=== PATIENT | female | born 1970 | race African-American/Black ===

== ENCOUNTER 2020-10-28 20:03 | Emergency (ER) | payer MEDICAID ==
[~2020-10-28] VITALS: Ht 167.6 cm; Wt 54.0 kg
--- NOTE | ~2020-10-28 | EMS ---
[address] [place] [address] EMS Patient Care Report Name: CHRIS GRIMALDO [id number] Admission: 10/28/20 Attend Phys: Discharge: 10/29/20 Date of : 70 Report #: [id number] THIS REPORT FOR: //name// Report Transmitted: 10/30/2020 07:08 EMS Care Summary [facility] [id number] @ 10/28/2020 19:01 Incident Location [address] Patient CHRIS GRIMADLO Female, 50 Years 1970 Patient Address [address] [place] [address] Patient History IV Drug Use/Abuse, Patient Allergies Codeine, Patient Medications Gabapentin, Unknown, Chief Complaint weakness Disposition Transported No Lights/[place] Dispatch Reason Sick Person Transported To [facility] Narrative Rescue [address] [facility] for a patient that went unresponsive and is not responsive again. We were called out for the same patient 20 min prior and she refused to be transported with EMS. The patient is currently found to be alert and orientated times four. She is wheel chair bound due to a previous injury and has constrictions to all four limbs. The nurses stated that she has [facility] [address] [place] [address] EMS Patient Care Report Name: CHRIS GRIMALDO Room: [facility]#: [id number] Admission: 10/28/20 Attend Phys: Discharge: 10/29/20 Date of : 70 Report #: [id number] had several episodes of being unresponsive and had to be woken up with painful stimuli. The first episode was around 1600 today. The patient stated that she does not remember those episodes but saw that her urine is cloudy and wants to be taken to the hospital now. The patient has a colostomy bag and a urinary catheter. The catheter was filled with red tinted cloudy urine with debris. She states that her urine was not that cloudy this morning. The nurses state that she had a UTI two weeks ago and has finished her antibiotics for it. She denied SOA, chest pain, pain and nausea. She was transferred over to the [facility] via draw sheet with safety devices properly attached and secured. She was placed on the monitor. She has a PICC line in the left clavicle. She has clear lung sounds, fever of 100.5, normal skin turgor and capillary refill. She states that she has not ate or drank anything today. She is scared of going to the hospital because "I don't want to there". She is comforted by communicating with EMS. The patient will be transported to [place]. During the transport the patient remained alert and orientated times four. She denied nausea, SOA, pain. She has bed sores on her right hip and pelvic area that is covered. She stated that she was seen by her doctor a couple days ago and he stated that there were healing well. The patient stated "i keep getting UTIs because they dont clean by colostomy bag properly." "They found E Coli in my urine because they dont clean my vaginal area right when they empty my bag". She stated that she also takes methadone three times a day and is now prescribed Flexeril. She is concerned it is too much for her. She was advised to discuss this with her doctor. She remained without complaint during transport. During transport [facility] advised that they were on high volume and we diverted to [facility]. On arrival the patient remained the same with no changes. She was transferred over to the hospital bed via draw sheet and a verbal PCR was given to the nurse. The nurse signed on the patients behalf due to constriction of limbs. Initial Vitals @19:36P: 113,SpO2: 92, @19:43P: 115,BP: 85/60,SpO2: 91, @19:53P: 114,SpO2: 96, @19:26P: 119,SpO2: 94, @19:21P: 124,SpO2: 94, @19:33P: 113,BP: 97/62,SpO2: 97, @19:31P: 115,SpO2: 92, @19:17P: 121,SpO2: 92, @19:41P: 114,SpO2: 93, @19:48P: 113,SpO2: 90, @19:18P: 117,BP: 123/71, @19:49P: 109,R: 20,BP: 100/61,Pain: 0/10,GCS: 15,Temp: 100.5F,Glucose: 100,SpO2: 92,Revised Trauma: 12, Assessments @19:15MENTAL:Person Oriented,Time Oriented,Event Oriented,Place [facility] [address] [facility] [place] [address] EMS Patient Care Report Name: CHRIS GRIMALDO Room: [facility] Yordy#: [id number] Admission: 10/28/20 Attend Phys: Discharge: 10/29/20 Date of : 70 Report #: [id number] Oriented,SKIN:Hot,HEENT:Head/Face: No Abnormalities,Neck/Airway: No Abnormalities,LUNG SOUNDS:General: No Abnormalities,ABDOMEN:General: No Abnormalities,PELVIS//GI:Pelvis GUOther,EXTREMITIES:Left Arm: Other,Left Leg: Other,Right Leg: Other,Right Arm: Other,PULSE:NEURO:No Abnormalities,@19:30MENTAL:Event Oriented,Time Oriented,Place Oriented,Person Oriented,SKIN:Hot,HEENT:Head/Face: No Abnormalities,Neck/Airway: No Abnormalities,LUNG SOUNDS:General: No Abnormalities,ABDOMEN:General: No Abnormalities,PELVIS//GI:Pelvis GUOther,Hematuria,EXTREMITIES:Left Leg: Other,Left Arm: Other,Right Arm: Other,Right Leg: Other,PULSE:NEURO:No Abnormalities, Impression Fever Procedures @PTANormal Saline (.9% NaCl) 10cc (Single Lumen) Site: Subclavian - LeftResponse: UnchangedSucceeded 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,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 Saline (.9% NaCl) 10cc Single Lumen Site: Subclavian - Left,Response: UnchangedSucceeded, 00:00,Initial Responder On Scene 19:01,Call Received 19:01,Dispatched 19:01,En Route 19:01,Psap Call 19:06,On Scene 19:10,At Patient 19:17,BP: / M,PULSE: 121,RR: R,SPO2: 92 Ox,ETCO2: ,BG: ,PAIN: ,GCS: , 19:18,BP: 123/71 M,PULSE: 117,RR: R,SPO2: Ox,ETCO2: ,BG: ,PAIN: ,GCS: , 19:20,Depart Scene 19:21,BP: / M,PULSE: 124,RR: R,SPO2: 94 Ox,ETCO2: ,BG: ,PAIN: ,GCS: , 19:26,BP: / M,PULSE: 119,RR: R,SPO2: 94 Ox,ETCO2: ,BG: ,PAIN: ,GCS: , 19:31,BP: / M,PULSE: 115,RR: R,SPO2: 92 Ox,ETCO2: ,BG: ,PAIN: ,GCS: , 19:33,BP: 97/62 M,PULSE: 113,RR: R,SPO2: 97 Ox,ETCO2: ,BG: ,PAIN: ,GCS: , 19:36,BP: / M,PULSE: 113,RR: R,SPO2: 92 Ox,ETCO2: ,BG: ,PAIN: ,GCS: , 19:41,BP: / M,PULSE: 114,RR: R,SPO2: 93 Ox,ETCO2: ,BG: ,PAIN: ,GCS: , 19:43,BP: 85/60 M,PULSE: 115,RR: R,SPO2: 91 Ox,ETCO2: ,BG: ,PAIN: ,GCS: , 19:48,BP: / M,PULSE: 113,RR: R,SPO2: 90 Ox,ETCO2: ,BG: ,PAIN: ,GCS: , 19:49,BP: 100/61 M,PULSE: 109,RR: 20 R,SPO2: 92 Ox,ETCO2: ,B,PAIN: 0,GCS: 15, 19:53,BP: / M,PULSE: 114,RR: R,SPO2: 96 Ox,ETCO2: ,BG: ,PAIN: ,GCS: , 19:54,At Destination 20:00,Transfer Patient 20:45,Call Closed [facility] [address] [place] [address] EMS Patient Care Report Name: CHRIS GRIMALDO Room: [facility]#: [id number] Admission: 10/28/20 Attend Phys: Discharge: 10/29/20 Date of : 70 Report #: [id number] Disclaimer v1.1 Copyright [employer] This EMS Care Summary contains data elements from the applicable legal record (which may be displayed differently). It is designed to provide pertinent information for the following purposes: continuity of care, clinical quality, and state data reporting. The complete legal record is available to ED staff and administrators of the receiving hospital in [facility]'s Patient Tracker. All data is provided "as is."
[2020-10-28] MEDS ORDERED: ACETAMINOPHEN325 M1 PO (20:47)
[2020-10-28] MEDS ORDERED: VITAMIN C500 M2 PO (20:50)
[2020-10-28] MEDS ORDERED: ABILIFY 5 MG TAB5 M1 PO (20:50)
[2020-10-28] MEDS ORDERED: BACLOFEN5 MG PO (20:51)
[2020-10-28] MEDS ORDERED: ASPERCREME1 EACH TOP (20:51)
[2020-10-28] MEDS ORDERED: BENADRYL25 MG PO (20:53)
[2020-10-28] MEDS ORDERED: CELEXA10 MG PO (20:53)
[2020-10-28] MEDS ORDERED: FLEXERIL PO (20:54)
[2020-10-28] MEDS ORDERED: DULCOLAX STOOL100 M1 PO (20:55)
[2020-10-28] MEDS ORDERED: DICLOFENAC SOD100 G1 TOP (20:55)
[2020-10-28] MEDS ORDERED: DRIZALMA SPRINK20 MG PO (20:56)
[2020-10-28] MEDS ORDERED: FEOSOL325 M1 PO (20:57)
[2020-10-28] MEDS ORDERED: GABAPENTIN600 M1 PO (20:58)
[2020-10-28] MEDS ORDERED: IPRAT-ALBUT 0.5-3 ML INH (20:59)
[2020-10-28] MEDS ORDERED: MELATONIN3 M1 PO (20:59)
[2020-10-28] MEDS ORDERED: VALPROIC ACID250 MG PO (21:00)
[2020-10-28] MEDS ORDERED: ORAZINC50 MG PO (21:01)
[2020-10-28 21:07] LABS: URINE BILIRUBIN NEGATIVE (Negative); URINE BLOOD 1+ (Negative); URINE COLOR YELLOW; URINE GLUCOSE-RANDOM NEGATIVE (Negative); URINE KETONES NEGATIVE (Negative); URINE NITRITE-REFLEX NEGATIVE (Negative); URINE PROTEIN NEGATIVE (Negative); URINE UROBILINOGEN 0.2 E.U./dl (0.2-1.0)
[2020-10-28 21:11] LABS: URINE CLARITY CLOUDY; URINE LEUKOCYTES-REFLEX 3+ (Negative)
[2020-10-28 21:36] LABS: BACTERIA-REFLEX >30 Many /HPF (None Seen); SQUAMOUS 4-10 Moderate /LPF (0-3); URINE RBC 3-10 Few /HPF (0-2); URINE WBC-REFLEX 0-5 Rare /HPF (0-5)
[2020-10-28 21:45] LABS: ABSOLUTE EOSINOPHILS 0.5 thou/uL (0.0-0.7); ABSOLUTE LYMPHOCYTES 1.9 thou/uL (0.8-5.3); ABSOLUTE MONOCYTES 0.9 thou/uL (0.0-1.2); ABSOLUTE NEUTROPHILS 5.5 thou/uL (1.6-8.1); BASOPHILS 0.4 %; EOSINOPHILS 5.8 %; HEMATOCRIT 28.5 % (37.0-47.0); HEMOGLOBIN 9.2 gm/dL (12.0-15.0); LYMPHOCYTES 21.6 %; MCH 25.7 pg (26.0-34.0); MCHC 32.1 g/dL (28.0-37.0); MCV 80.2 fL (80.0-100.0); MONOCYTES 10.7 %; MPV 7.9 fl. (7.2-11.1); NUCLEATED RBCS 0 /100WBC; PLATELET COUNT* 233 thou/uL (150-400); POLYS 61.5 %; RBC 3.56 mil/uL (4.20-5.00); RDW-CV 21.1 % (10.5-14.5); WBC 8.9 thou/uL (4.0-11.0)
[2020-10-28 21:49] LABS: CASTS None Seen /LPF (None Seen); CRYSTALS None Seen /LPF (None Seen)
[2020-10-28 21:53] LABS: CALCIUM 9.4 mg/dL (8.5-10.1); CREATININE 0.5 mg/dL (0.6-1.3); POTASSIUM 4.6 mmol/L (3.5-5.1)
[2020-10-28 21:57] LABS: MAGNESIUM 1.8 mg/dL (1.8-2.4); TOTAL BILIRUBIN 0.6 mg/dL (<0.1-1.0); TOTAL PROTEIN 7.5 g/dL (6.4-8.2)
[2020-10-28 22:28] LABS: ANISOCYTOSIS 2+; PLATELET ESTIMATE ADEQUATE
[2020-10-28] MEDS ORDERED: LEVOFLOXACIN750 MG PO (22:35)
[2020-10-29 00:59] VITALS: BP 105/62
== END 2020-10-29 01:00 ==
LOC: M.ERS 20:03
PROVIDERS: Personal Emergency Response Attendant
DX: N39.0 Urinary tract infection, site not specified (principal); E86.0 Dehydration; F17.210 Nicotine dependence, cigarettes, uncomplicated; Z88.5 Allergy status to narcotic agent